=== PATIENT | female | born 1985 | race Caucasian/White ===

== ENCOUNTER → 2016-08-01 | Outpatient (CLI) | payer MEDICAID ==
[~2016-08-01] MED LIST: ACET-62 PO; IBUP200C62 PO
== END ==
LOC: LAB 16:31
PROVIDERS: ATTEND Nurse Practitioner Obstetrics & Gynecology
DX: Z36 Encounter for antenatal screening of mother (principal)
CPT/HCPCS: 36415; 84702

== ENCOUNTER 2017-03-19 15:25 | Inpatient (IN) ==
[2017-03-19] MEDS ORDERED: MAG-AL + SIM ORAL LIQUID 30ml PO PRN (15:40)
[2017-03-19] MEDS ORDERED: CALCIUM CARBONATE Chewable 500mg TABLET PO PRN (15:40)
[2017-03-19] MEDS ORDERED: ACETAMINOPHEN 500 MG TABLET PO PRN (15:40)
[2017-03-19] MEDS ORDERED: METHYLERGONOVINE 0.2 MG/ML INJECTION IM PRN (15:40)
[2017-03-19] MEDS ORDERED: CARBOPROST 250 MCG/ML INJECTION IM PRN (15:40)
[2017-03-19] MEDS ORDERED: LIDOCAINE 1% (10mg/ml) 2mL INJ PF SDV ID PRN (15:40)
[2017-03-19] MEDS: LR 1,000 ML IV PRN ×2 (15:53→17:11)
--- OUTSIDE RECORDS SUMMARY | 2017-03-19 16:27 | External Medical Summary ---
:1985 Author Organization eClinicalWorks Care Team Providers Name Role Phone Giorgi Iqbal Provider Role Unavailable Allergies No Known Allergies Problems Problem Type Condition ICD-9 Code Onset Dates Condition Status Assessment Acute bronchitis 466.0 Active Medications Medication Code System Code Instructions Start Date End Date Status Dosage Ventolin HFA [facility][NOTE 3] 06028-902 108 (90 Base) October 25, 1 to 2 2-20 MCG/ACT 2014 puffs as Inhalation every needed 6 hours as needed for cough/congestion Tylenol [facility][NOTE 3] 05511-313 325 MG Orally 1 tablet 6-60 every 6 hrs as needed Procedures Procedure Coding System Code Date URINALYSIS, IN HOUSE CPT-4 02594 November 23, 2014 Results No Known Results Summary Purpose eClinicalWorks Submission
--- OUTSIDE RECORDS SUMMARY | 2017-03-19 16:27 | External Medical Summary | Continuity of Care Document ---
:1985 Author Organization [facility] Address [address] [place], [place] [id number] Phone Care Team Providers Name Role Phone [facility] Unavailable Unavailable Allergies, Adverse Reactions, Alerts Substance Reaction Severity Status No Known Drug Allergies Unknown Active Medications Medication Instructions Dosage Effective Dates Status Comments (start - stop) Fioricet 50 mg-300 take 1 - 2 capsule Not Available - Active mg-40 mg capsule by oral route every 4 hours as needed not to exceed 6 capsules per 24hrs 28 mg take 1 tablet by Not Available - Active iron-800 mcg tablet oral route every day CLOBETASOL apply by topical - Active PROPIONATE (unknown route 2 times every strength) day a thin layer to the affected area(s) TRIAMCINOLONE apply by topical - Active ACETONIDE (unknown route 2 times every strength) day a thin layer to the affected area(s) Problems Condition Effective Dates (start - stop) Clinical Status Supervision of other high risk - pregnancies, third trimester 35 weeks gestation of - Candidiasis of vulva and vagina Candidiasis of vulva and vagina 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) w/o abn findings Pap Smear Screening, Cervix - Secondary amenorrhea Supervision of other high risk - pregnancies, second trimester 18 weeks gestation of - Supervision of other high risk - pregnancies, first trimester Oth related conditions, - first trimester Pap Smear Screening, Cervix - 10 weeks gestation of - Supervision of other high risk - pregnancies, second trimester 20 weeks gestation of - Supervision of other high risk - pregnancies, second trimester Maternal care for excess growth, - second tri, unsp 20 weeks gestation of - Supervision of other high risk - pregnancies, second trimester 25 weeks gestation of - Supervision of other high risk - pregnancies, second trimester 14 weeks gestation of - Supervision of other high risk - pregnancies, third trimester Oth related conditions, - third trimester 31 weeks gestation of - Supervision of other high risk - pregnancies, third trimester 29 weeks gestation of - Supervision of other high risk - pregnancies, third trimester 33 weeks gestation of - Maternal care for excess growth, - third trimester, unsp Low lying placenta NOS or w/out - hemorrhage, third trimester 33 weeks gestation of - Decreased movements, third - trimester, unsp Encounter For Screening For - Streptococcus B 37 weeks gestation of - Encounter for removal of intrauterine - contraceptive device Encounter for removal of intrauterine contraceptive device state, incidental Encounter for screening of mother Procedures Procedure Date Immuniz admnin, 1 vac, sngl/combo 19 Yrs + TDAP VACCINE >7 IM Immuniz admn, ea add vacsngl/combo Flu Vaccine - Quadrivalent OB Visit No Charge Results Test Name Date and Time Measure Units Reference Range Abnormal Flag Comments Unknown Advance Directives Directive Yes / No Effective Date File Name Unknown Encounters Encounter Practice Location Reason(s) Diagnoses Date Provider Care Team Description For Visit [facility] Decreased Oct-2 Jose M In Womens movements, third 5-[address] [place] [address] [place], trimester, 7 Medical PO Box unspEncounter For Center 1522, DrPalomo, Screening For 120, [place], Streptococcus B37 Esa, [id number], weeks gestation [place], [place] of [id number] tel: , [place]. tel: [phone] Thad See Supervision of Oct-1 Jose M Referring In Womens other high risk 0-201 Mona. 700 Provider: Health [place], pregnancies, 7 Medical [place] PO Box third [email or web address] Center Jose M R, 1522, weeks gestation Palomo Clemens, of 120, Medical [place], See, [place] , [place], [facility] 120, [place] [id number] Esa, tel: , [place]. [place], tel:[phone]. [id number] tel:[phone] Thad See Supervision of Sep-2 Jose M In Womens other high risk 7-201 [place]. 700 Health [place], pregnancies, 7 Medical PO Box third [email or web address] Center 1522, weeks gestation Palomo Clemens, of 120, [place], See, [id number], [place], [place] [id number] tel: , [place]. tel: [phone] Thad See Maternal care for Sep-2 Jose M In Womens Ultrasound excess 7-201 Mon[place]. 700 Health [place], growth, third 7 Medical PO Box trimester, Center 1522, unspLow lying Palomo Clemens, placenta NOS or 120, [place], w/out hemorrhage, Esa, , third [email or web address] [place], [place] weeks gestation [id number] tel: of , [place]. tel: [phone] Thad See Supervision of Sep-1 Jose M In Womens other high risk 2-201 [place]. 700 Health [place], pregnancies, 7 Medical PO Box third Center 1522, trimesterOth Palomo Clemens, related 120, [place], conditions, third Esa, [id number], [email or web address] weeks [place], [place] gestation of [id number] tel: , [place]. tel: [phone] Thad See Supervision of Sep-0 Jose M In Womens other high risk 1-201 [place]. 700 Health [place], pregnancies, 7 Medical PO Box third [email or web address] Center 1522, weeks gestation Palomo Clemens, of 120, [place], See, [id number], [place], [place] [id number] tel: , . tel: [phone] Thad See Supervision of Aug-0 Jose M In Womens other high risk 3-201 [place]. 700 Health [place], pregnancies, 7 Medical PO Box second Center 1522, [email or web address] weeks Palomo Clemens, gestation of 120, [place], [place], [id number], [place], [place] [id number] tel: , . tel: [phone] Thad See Supervision of Dami-2 Jose M In Womens other high risk 8-201 [place]. 700 Health [place], pregnancies, 7 Medical PO Box second Center 1522, weeks Palomo Clemens, gestation of 120, [place], See, [id number], [place], [place] [id number] tel: , . tel: [phone] Thad See Supervision of Dami-2 Jose M In Womens Ultrasound other high risk 8-201 [place]. 700 Health [place], pregnancies, 7 Medical PO Box second Center 1522, trimesterMaternal Palomo Clemens, care for excess 120, [place], growth, See, , second tri, [place], [place] unsp20 weeks tel: gestation of , [place]. tel: [phone] Thad See Supervision of Dami-1 Jose M In Womens other high risk 5-201 [place]. 700 Health [place], pregnancies, 7 Medical PO Box second Center 1522, [email or web address] weeks Palomo Clemens, gestation of 120, [place], See, [id number], [place], [place] [id number] tel: , . tel: [phone] Thad See Supervision of May-1 Jose M In Womens other high risk 8-201 [place]. 700 Health [place], pregnancies, 7 Medical PO Box second Center 1522, weeks Palomo Clemens, gestation of 120, [place], See, [id number], [place], [place] [id number] tel: , . tel: [phone] Thad See Supervision of Apr-2 Jose M In Womens other high risk 0-201 Mon[place]. 700 Health [place], pregnancies, 7 Medical PO Box first Center 1522, trimesterOth , Palomo Rogers, related 120, [place], conditions, first See, , trimesterPap [place], [place] Smear Screening, tel: Pitknl81 weeks , [place]. gestation of tel: [phone] Thad See Secondary Apr-0 Jose M In Womens amenorrhea 6-201 [place]. 700 Health [place], 7 Medical PO Box Center 1522, , Palomo Rogers, 120, [place], See, [id number], [place], [place] tel: , [place]. tel: [phone] Thad See state, Mar-2 Jose M In Womens incidental 2-201 Mon[place]. 700 Health [place], 7 Medical PO Box Center 1522, Palomo Clemens, 120, [place], See, , [place], [place] tel: , [place]. tel: [phone] Thad See Encounter for Mar-1 Joe In Womens 5-201 [place]. Health [place], screening of 7 700 PO Box mother Medical 1522, [place] Dr Sue, [facility] ADELAIDA, 120, , See, [place], tel:901 , [place]. tel: [phone] Thad See Candidiasis of Chap[place]-2 [place] In Womens vulva and 6-201 [place]. Health [place], vaginaCandidiasis 7 700 PO Box of vulva and Medical 1522, vaginaEncntr for [place], biology tutor exam Palomo Clemens, (general) 120, [id number], (routine) w/o abn See, [place] findingsPap Smear [place], tel: Screening, Cervix , [place]. tel: [phone] Thad See Encounter for Chapito-2 Jose M In Womens removal of 2-201 [place]. 700 Health [place], intrauterine 6 Medical PO Box contraceptive [place] 1522, deviceEncounter , Palomo Rogers, for removal of 120, [place], intrauterine [place], , contraceptive [place], [place] device tel: , [place]. 145711 tel: [phone] Thad See Feb-2 Jose M In Women 8-[address], [address] [place] [address] 1522, , Palomo Rogers, 120, [place], See, [id number], [place], [place] [id number] tel: , [place]. 735546 tel: [phone] Family History Family Member Diagnosis Age At Onset Paternal Grandmother Diabetes mellitus Paternal Grandfather Lung Disease Maternal Grandfather Diabetes mellitus Paternal Grandfather Diabetes mellitus Maternal Grandmother Diabetes mellitus Maternal Grandmother Ovarian Cancer Maternal Grandmother Skin Cancer Immunizations Vaccine Date Status Comments Tdap completed Source: New Immunization Record Influenza, injectable, completed Source: New Immunization Record quadrivalent, preservative free, 3 yrs or older Payers Payer name Insurance type Covered alliance party ID Authorization(s) [employer] [place] Medicaid MC [id number] [employer] [place] MC [id number] [employer] [place] Medicaid MC [id number] Social History Type Description Quantity Date Captured Alcohol Use Details No Caffeine Use Details Unknown Tobacco Use Status Smoking Status Former smoker Vital Signs Date / Height Weight BMI Pulse Blood Temperature Respiratory Body Head BMI Time: Rate Pressure Rate Surface Circumference percentile Area 238.80 43.6 130/72 -2017 lbs 7 mm[Hg] 2:57 kg/m PM eter (2) Chief Complaint And Reason For Visit Unknown Chief Complaint And Reason For Visit Reason For Referral Reason For Referral Unknown Plan Of Care Date Type Action Status Goal Lifestyle education regarding completed diet Goal Lifestyle education regarding completed diet Appointment Jackie Alejandra BOOKED Future Order: Lab Order Pap Smear With HPV Reflex If Ordered ASCUS ([id number]) Future Order: Radiology Order Complete OB Ultrasound > 14 Ordered Weeks ([id number]) Future Order: Radiology Order Ultrasound OB Follow-up ([id number]) Ordered Date Type Problem Goal Intervention Status Start Date Unknown. History Of Present Illness Encounter Date Complaint History Of Present Illness This patient has no known history of present illness Functional Status Encounter Date Functional Assessment Cognitive Assessment Unknown Medications Administered Medication Instructions Dosage Effective Dates (start - stop) Status Comments Drug Treatment Unknown Instructions Date Instruction Additional Information HIV and other routine tests risk factors identified by history anticipated course of care nutrition and weight gain counseling, special diet toxoplasmosis precautions (cats / raw meat) sexual activity exercise indications for ultrasound influenza vaccine environmental / work hazards travel use of any medications (including supplements, vitamins, herbs, OTC drugs) domestic violence seat belt use childbirth classes / hospital facilities hospital registration genetic testing Zika virus assessment & precautions Giving encouragement to exercise Related to Body mass index 38.0-38.9 Lifestyle education regarding diet Related to Body mass index 38.0-38.9 Giving encouragement to exercise Related to Body mass index 38.0-38.9 Lifestyle education regarding diet Related to Body mass index 38.0-38.9
--- OUTSIDE RECORDS SUMMARY | 2017-03-19 16:27 | External Medical Summary | Continuity of Care Document ---
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 Pap [...] second trimester 14 weeks gestation of - Encounter for removal of intrauterine - contraceptive device Encounter for removal of intrauterine contraceptive device state, incidental Encounter for screening of mother Procedures Procedure Date OB Visit No Charge Results Test Name Date and Time Measure Units Reference Range Abnormal Flag Comments Unknown Advance Directives Directive Yes / No Effective Date File Name Unknown Encounters Encounter Practice Location Reason(s) Diagnoses Date Provider Care Description For Visit Team Members Thad See Supervision of Jose M In Womens other high risk 3-201 [place]. 700 Health [place], pregnancies, 7 Medical PO Box second [email or web address] Center 1522, weeks gestation of Palomo Clemens, 120, [place], [place], [id number], [place], [place] [id number] tel:+ , [place]. tel: [phone] Thad See Supervision of Dami-2 Jose M In Womens other high risk 8-201 [place]. 700 Health [place], pregnancies, 7 Medical PO Box second [email or web address] Center 1522, weeks gestation of Palomo Clemens, 120, [place], [place], [id number], [place], [place] [id number] tel:+ , [place]. tel:[phone] Thad See Supervision of Dami-2 Jose M In Womens Ultrasound other high risk 8-201 [place]. 700 Health [place], pregnancies, 7 Medical PO Box second Center 1522, trimesterMaternal Palomo Clemens, care for excess 120, [place], growth, [place]sa, [id number], second tri, unsp20 [place], [place] weeks gestation of [id number] tel:+ , [place]. tel: [phone] Thad See Supervision of Dami-1 Jose M In Womens other high risk 5-201 [place]. 700 Health [place], pregnancies, 7 Medical PO Box second [email or web address] Center 1522, weeks gestation of Palomo Clemens, 120, [place], [place], [id number], [place], [place] [id number] tel: , [place]. tel: [phone] Thad See Supervision of May-1 Jose M In Womens other high risk 8-201 [place]. 700 Health [place], pregnancies, 7 Medical PO Box second [email or web address] Center 1522, weeks gestation of Palomo Clemens, 120, [place], See, [id number], [place], [place] [id number] tel: , [place]. tel: [phone] Thad See Supervision of Apr-2 Jose M In Womens other high risk 0-201 [place]. 700 Health [place], pregnancies, first 7 Medical PO Box trimesterOth Center 1522, related Palomo Clemens, conditions, first 120, [place], trimesterPap Smear See, , Screening, [place], [place] Pyucgn56 weeks tel: gestation of , [place]. tel: [phone] Thad See Secondary Apr-0 Jose M In Womens amenorrhea 6-201 [place]. 700 Health [place], 7 Medical PO Box Center 1522, Palomo Clemens, 120, [place], See, [id number], [place], [place] [id number] tel: , [place]. tel: [phone] Thad See state, Mar-2 Joes M In Womens incidental 2-201 [place]. 700 Health [place], 7 Medical PO Box Center 1522, Palomo Clemens, 120, [place], Esa, [id number], [place], [place] [id number] tel: , [place]. tel: [phone] Thad See Encounter for Mar-1 Joe In Womens 5-201 [place]. Health [place], screening of 7 700 PO Box mother Medical 1522, Center Sue, , [facility], 120, [id number], See, [place], tel:[phone] , [place]. tel: [phone] Thad See Candidiasis of [place]-2 [place] In Womens vulva and 6-201 [place]. Health [place], vaginaCandidiasis 7 700 PO Box of vulva and Medical 1522, vaginaEncntr for Center Sue, sourcing coordinator exam (general) Palomo Clemens, (routine) w/o abn 120, [id number], findingsPap Smear See, [place] Screening, Cervix [place], tel:[phone] , [place]. tel: [phone] Thad See Encounter for Jose M In Womens removal of 2-201 [place]. 700 [facility] [place], intrauterine 6 Medical PO Box contraceptive Center 1522, deviceEncounter Palomo Clemens, for removal of 120, [place], intrauterine See, [id number], contraceptive [place], [place] device [id number] tel: , [place]. tel: [phone] Thad See Fe- Jose M In Womens 8-200 [place]. 700 Health [place], 8 Medical PO Box Center 1522, Palomo Clemens, 120, [place], See, [id number], [place], [place] [id number] tel: , [place]. tel: [phone] Family History Family Member Diagnosis Age At Onset Paternal Grandmother Diabetes mellitus Paternal Grandfather Lung Disease Maternal Grandfather Diabetes mellitus Paternal Grandfather Diabetes mellitus Maternal Grandmother Diabetes mellitus Maternal Grandmother Ovarian Cancer Maternal Grandmother Skin Cancer Immunizations Vaccine Date Status Comments Unknown Payers Payer name Insurance type Covered constitution party ID Authorization(s) [employer] [place] - Medicaid MC [id number] Social History Type Description Quantity Date Captured Alcohol Use Details No Caffeine Use Details Unknown Tobacco Use Status Smoking Status Former smoker Vital Signs Date / Height Weight BMI Pulse Blood Temperature Respiratory Body Head BMI Time: Rate Pressure Rate Surface Circumference percentile Area Unknown Chief Complaint And Reason For Visit Unknown [...] Complete OB Ultrasound > 14 Ordered Weeks (37642) Date Type Problem Goal Intervention Status Start [...]
--- OUTSIDE RECORDS SUMMARY | 2017-03-19 16:27 | External Medical Summary ---
:1985 Author Organization eClinicalWorks Care Team Providers Name Role Phone Olesya Perrin Provider Role Unavailable Allergies, Adverse Reactions, Alerts Substance Reaction Event Type N.K.D.A. Info Not Available Non Drug Allergy Problems Problem Type Condition ICD-9 Code Onset Dates Condition Status Assessment Overweight 278.02 Active Assessment Acute maxillary sinusitis 461.0 Active Problem Overweight 278.02 Active Medications Medication Code System Code Instructions Start Date End [place] [address] 150 MG Orally x1, December 06, December 08, 1 tablet 0-79 may repeat in a 2014 [address] [place] [address] 875-125 MG Orally December 06, December 16, 1 tablet 6-12 Twice a day 2014 2014 [place] [address] 108 (90 Base) October 25, 1 to 2 2-20 MCG/ACT 2014 puffs as Inhalation every needed 6 hours as needed for cough/congestion Tylenol NDC 41346-911 325 MG Orally 1 tablet 6-60 every 6 hrs as needed Procedures Procedure Coding System Code Date TSH CPT-4 80782 December 06, 2014 OFFICE VISIT, EST-LOW COMPLEXITY (15 MIN.) CPT-4 67661 December 06, 2014 COMPLETE CBC W/AUTO DIFF WBC CPT-4 04848 December 06, 2014 Vital Signs Date/Time: December 06, 2014 Height 61 in Weight 213.8 lbs Temperature 98.5 F Blood Pressure Diastolic 83 mm Hg Blood Pressure Systolic 123 mm Hg Cardiac Monitoring Heart Rate 102 /min BMI 40.39 Index Respiratory Rate 14 /min Results No Known Results Summary Purpose eClinicalWorks Submission
--- OUTSIDE RECORDS SUMMARY | 2017-03-19 16:30 | External Medical Summary ---
:1984 Author Organization eClinicalWorks Care Team Providers Name Role Phone Giorgi Iqbal Provider Role Unavailable Allergies, Adverse Reactions, Alerts Substance Reaction Event Type N.K.D.A. Info Not Available Non Drug Allergy Problems Problem Type Condition ICD-9 Code Onset Dates Condition Status Assessment Pain in joint, ankle and foot 719.47 Active Assessment Closed fracture of unspecified 825.20 Active bone(s) of foot (except toes) Problem Overweight 278.02 Active Assessment Other fall E888.8 Active Medications Medication Code System Code Instructions Start Date End Date Status Dosage [place] [facility] [address]-018 5-325 MG Orally 1 tablet 3-01 every 6 hrs as needed Ventolin HFA [facility] 4[address]-326 108 (90 Base) October 25, 1 to 2 2-20 MCG/ACT 2015 puffs as Inhalation every needed 6 hours as needed for cough/congestion Procedures Procedure Coding System Code Date OFFICE VISIT, EST-LOW COMPLEXITY (15 MIN.) CPT-4 51599 Jan 26, 2015 Vital Signs Date/Time: Jan 26, 2015 Cardiac Monitoring Heart Rate 97 /min Height 61 in Temperature 98.6 F Oximetry 98 % Respiratory Rate 16 /min Blood Pressure Diastolic 80 mm Hg Blood Pressure Systolic 124 mm Hg Results No Known Results Summary Purpose [email or web address] Submission
--- OUTSIDE RECORDS SUMMARY | 2017-03-19 16:31 | External Medical Summary | Continuity of Care Document ---
:1985 Author Organization [facility] [facility] Address [address] [place], [place] [id number] Phone Care Team Providers Name Role Phone [facility] Unavailable Unavailable Allergies, Adverse Reactions, Alerts Substance [...] third trimester 33 weeks gestation of - Candidiasis of vulva and vagina Candidiasis of vulva and vagina Encntr for obgyn specialist exam (general) (routine) w/o abn findings Pap [...] third trimester 35 weeks gestation of - Supervision of other high risk - pregnancies, third trimester 29 weeks gestation of - Maternal care for excess growth, - third trimester, unsp Low lying placenta NOS or w/out - hemorrhage, third trimester 33 weeks gestation of - Encounter for removal [...] Provider Care Team Description For Visit Members Thad See Supervision of Feb- Jose M Referring In Womens other high risk 0-201 [place]. Porsche Provider: Health [place], pregnancies, 7 Medical [place] PO Box third [email or web address] Center Jose M , 1522, weeks gestation Palomo Clemens, of 120, Medical [facility] [id number], [place], [place] [address], [id number] [place], tel: , . [place], [address] tel: [phone]. [id number] tel:[phone] Thad See Supervision of Jan-2 Jose M In Womens other high risk 7-201 [place]. 700 Health [place], pregnancies, 7 Medical PO Box third [email or web address] Center 1522, weeks gestation Palomo Clemens, of 120, [place], See, [id number], [place], [place] [id number] tel:+ , [place]. tel:[phone] Thad See Maternal care for Sep-2 Jose M In Womens Ultrasound excess 7-201 [place]. 700 Health [place], growth, third 7 Medical PO Box trimester, Center 1522, unspLow lying [place] Clemens, placenta NOS or 120, [place], w/out hemorrhage, See, , third [email or web address] [place], [place] weeks gestation [id number] tel:+ of , [place]. tel:[phone] Thad See Supervision of Sep-1 Jose M In Womens other high risk 2-201 [place]. 700 Health [place], pregnancies, 7 Medical PO Box third Center 1522, trimesterOth Pal[place] Clemens, related 120, [place], conditions, third See, [id number], [email or web address] weeks [place], [place] gestation of [id number] tel:+ , [place]. tel: [phone] Thad See Supervision of Sep-0 Jose M In Womens other high risk 1-201 [place]. 700 Health [place], pregnancies, 7 Medical PO Box third [email or web address] Center 1522, weeks gestation Pal[place] Clemens, of 120, [place], See, [id number], [place], [place] [id number] tel:+ , [place]. tel:[phone] Thad See Supervision of Aug-0 Jose M In Womens other high risk 3-201 [place]. 700 Health [place], pregnancies, 7 Medical PO Box second Center 1522, [email or web address] weeks Pal[place] Clemens, gestation of 120, [place], See, [id number], [place], [place] [id number] tel: , [place]. tel:[phone] Thad See Supervision of Dami-2 Jose M In Womens other high risk 8-201 [place]. 700 Health [place], pregnancies, 7 Medical PO Box second Center 1522, [email or web address] weeks Palomo Clemens, gestation of 120, [place], See, [id number], [place], [place] [id number] tel: , [place]. tel:[phone] Thad See Supervision of Dami-2 Jose M In Womens Ultrasound other high risk 8-201 [place]. 700 Health [place], pregnancies, 7 Medical PO Box second Center 1522, trimesterMaternal Palomo Clemens, care for excess 120, [place], growth, See, [id number], second tri, [place], [place] unsp20 weeks [id number] tel: gestation of , [place]. tel: [phone] Thad See Supervision of Dami-1 Jose M In Womens other high risk 5-201 [place]. 700 Health [place], pregnancies, 7 Medical PO Box second Center 1522, [email or web address] weeks Pal[place] Clemens, gestation of 120, [place], See, [id number], [place], [place] [id number] tel: , [place]. tel: [phone] Thad See Supervision of May-1 Jose M In Womens other high risk 8-201 [place]. 700 Health [place], pregnancies, 7 Medical PO Box second Center 1522, [email or web address] weeks Palomo Clemens, gestation of 120, [place], See, [id number], [place], [place] [id number] tel: , [place]. tel: [phone] Thad See Supervision of Apr-2 Jose M In Womens other high risk 0-201 [place]. 700 Health [place], pregnancies, 7 Medical PO Box first Center 1522, trimesterOth [place] Clemens, related 120, [place], conditions, first See, , trimesterPap [place], [place] Smear Screening, tel: Vdnrit32 weeks , [place]. gestation of tel: [phone] Thad See Secondary Apr-0 Jose M In Womens amenorrhea 6-201 [place]. 700 Health [place], 7 Medical PO Box Center 1522, [place]omo Clemens, 120, [place], [place], [id number], [place], [place] [id number] tel: , [place]. tel: [phone] Thad See state, Mar-2 Jose M In Womens incidental 2-201 [place]. 700 Health [place], 7 Medical PO Box Center 1522, Pal[place] Clemens, 120, [place], [place], [id number], [place], [place] [id number] tel:+ , [place]. tel: [phone] Thad See Encounter for Mar-1 Joe In Womens 5-201 [place]. Health [place], screening of 7 700 PO Box mother Medical 1522, [place] Sue, , Palomo SON, 120, [id number], See, [place], tel:[phone] , [place]. tel: [phone] Thad See Candidiasis of [place]-2 [place] In Womens vulva and 6-201 [place]. Health [place], vaginaCandidiasis 7 700 PO Box of vulva and Medical 1522, vaginaEncntr for [facility], obgyn specialist exam , Palomo SON, (general) 120, , (routine) w/o abn See, [place] findingsPap Smear [place], tel: Screening, Cervix , [place]. tel: [phone] Thad See Encounter for [place]-2 Jose M In Womens removal of 2-201 [place]. 700 Health [place], intrauterine 6 Medical PO Box contraceptive [place] 1522, deviceEncounter , Palomo Rogers, for removal of 120, [place], intrauterine [place], , contraceptive [place], [place] device [id number] tel:+ , [place]. tel: [phone] Thad See Feb-2 Jose M In Womens 8-200 [place]. 700 Health [place], 8 Medical PO Box [place] 1522, Palomo Clemens, 120, [place], [place], , [place], [place] [id number] tel:+ , [place]. tel: [phone] Family History Family Member Diagnosis Age At [...] older Payers Payer name Insurance type Covered green party ID Authorization(s) [employer] [place] Medicaid MC [id number] [place] Medicaid MC [id number] [place] - Medicaid MC [id number] Social History Type Description Quantity Date Captured Alcohol Use Details No Caffeine Use Details Unknown Tobacco Use Status Smoking Status Former smoker Vital Signs Date / Height Weight BMI Pulse Blood Temperature Respiratory Body Head BMI Time: Rate Pressure Rate Surface Circumference percentile Area 235.30 43.0 129/77 2017 lbs 3 mm[Hg] 2:41 kg/m PM eter (2) Chief Complaint And [...] Complete OB Ultrasound > 14 Ordered Weeks ([id number]) Future Order: Radiology Order Ultrasound OB Follow-up ([id number]) Ordered Date Type Problem Goal Intervention Status [...]
--- OUTSIDE RECORDS SUMMARY | 2017-03-19 16:31 | External Medical Summary ---
:1985 Author Organization eClinicalWorks Care Team Providers Name Role Phone Olesya Perrin Provider Role Unavailable Allergies, Adverse Reactions, Alerts Substance Reaction Event Type N.K.D.A. 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
--- OUTSIDE RECORDS SUMMARY | 2017-03-19 16:31 | External Medical Summary | Continuity of Care Document ---
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 findings Pap [...] second trimester 14 weeks gestation of - Maternal care for excess growth, - second tri, unsp Supervision of other high risk - pregnancies, second trimester 20 weeks gestation of - Supervision of other high risk - pregnancies, second trimester 25 weeks gestation of - Supervision of other high risk - pregnancies, third trimester Oth related conditions, - third trimester 31 weeks gestation of - Encounter for removal of intrauterine - contraceptive device Encounter for removal of intrauterine contraceptive device Encounter for screening of mother state, incidental Procedures Procedure Date OB Visit No Charge Results Test Name Date and Time Measure Units Reference Range Abnormal Flag Comments Panel Description: Glucose [Mass/volume] in Serum or Plasma --1 hour post 50 g glucose PO GLUCOSE, 181 mg/dL <140 H One hour value of > GESTATIONAL SCREEN 15:07:00 ky=896 mg/dL indicatesthe (50G)-140 CUTOFF need for a diagnostic 75 g dose 2-hour or100 g dose 3-hour oral glucose tolerance test;patient fasting is required.Test performed at [facility] [id number] [place] [id number]: MED VELÁSQUEZ DO,MPH Panel Description: HEMOGLOBIN + HEMATOCRIT HEMOGLOBIN 15:07:00 10.9 g/dL 11.7-15.5 L HEMATOCRIT 15:07:00 32.5 % 35.0-45.0 L REPORT COMMENT:FASTING :NOTest performed at [facility] [id number] [place] [id number]: MED VELÁSQUEZ DO,MPH Advance Directives Directive Yes / No Effective Date File Name Unknown Encounters Encounter Practice Location Reason(s) Diagnoses Date Provider Care Description For Visit Team Members Thad See Supervision of Jose M In Womens other high risk 2-[address], pregnancies, third 7 Medical [facility] 1522, related Palomo Clemens, conditions, third 120, [place], [email or web address] weeks See, [id number], gestation of [place], [place] [id number] tel:+ , [place]. tel: [phone] Thad See Supervision of Sep-0 Jose M In Womens other high risk 1-201 [place]. 700 Health [place], pregnancies, third 7 Medical PO Box [email or web address] weeks Center 1522, gestation of [place] Clemens, 120, [place], See, [id number], [place], [place] [id number] tel:+ , [place]. tel: [phone] Thad See Supervision of Aug-0 Jose M In Womens other high risk 3-201 [place]. 700 Health [place], pregnancies, 7 Medical PO Box second Center 1522, weeks gestation of Palomo Clemens, 120, [place], See, [id number], [place], [place] [id number] tel:+ , [place]. tel: [phone] Thad See Supervision of Dami-2 Jose M In Womens other high risk 8-201 [place]. 700 Health [place], pregnancies, 7 Medical PO Box second [email or web address] Center 1522, weeks gestation of Palomo Clemens, 120, [place], See, [id number], [place], [place] [id number] tel:+ , [place]. tel: [phone] Thad See Maternal care for Dami-2 Jose M In Womens Ultrasound excess 8-201 [place]. 700 Health [place], growth, second 7 Medical PO Box tri, Center 1522, unspSupervision of Palomo Clemens, other high risk 120, [place], pregnancies, See, [id number], second [email or web address] [place], [place] weeks gestation of [id number] tel:+ , [place]. tel: [phone] Thad See Supervision of Dami-1 Jose M In Womens other high risk 5-201 [place]. 700 Health [place], pregnancies, 7 Medical PO Box second [email or web address] Center 1522, weeks gestation of Paloom Clemens, 120, [place], See, [id number], [place], [place] [id number] tel:+ , [place]. tel: [phone] Thad See Supervision of May-1 Jose M In Womens other high risk 8-201 [place]. 700 Health [place], pregnancies, 7 Medical PO Box second [email or web address] Center 1522, weeks gestation of Palomo Clemens, 120, [place], See, [id number], [place], [place] [id number] tel:+ , [place]. tel: [phone] Thad See Supervision of Apr-2 Jose M In Womens other high risk 0-201 [place]. 700 Health [place], pregnancies, first 7 Medical PO Box trimesterOth Center 1522, related Palomo Clemens, conditions, first 120, [place], trimesterPap Smear See, , Screening, [place], [place] Fuxtwm66 weeks tel: gestation of , [place]. tel: [phone] Thad See Secondary Apr-0 Jose M In Womens amenorrhea 6-201 [place]. 700 Health [place], 7 Medical PO Box Center 1522, Palomo Clemens, 120, [place], See, [id number], [place], [place] [id number] tel:+ , [place]. tel: [phone] Thad See state, Mar-2 Jose M In Womens incidental 2-201 [place]. 700 Health [place], 7 Medical PO Box Center 1522, Palomo Clemens, 120, [place], See, [id number], [place], [place] [id number] tel:+ , [place]. tel: [phone] Thad See Encounter for Mar-1 Joe In Womens 5-201 [place]. Health [place], screening of 7 700 PO Box mother Medical 1522, [place] Sue, Palomo Clemens, 120, [id number], See, [place], tel:[phone] , [place]. tel: [phone] Thad See Candidiasis of [place]-2 [place] In Womens vulva and 6-201 [place]. 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 tel: [phone] Thad See Encounter for Jose M In Womens removal of 2-201 [place]. 700 Health [place], intrauterine 6 Medical PO Box contraceptive Center 1522, deviceEncounter , Palomo Rogers, for removal of 120, [place], intrauterine See, [id number], contraceptive [place], [place] device [id number] tel: , [place]. tel: [phone] Thad See Fe- Jose M In Womens 8-200 [place]. 700 Health [place], 8 Medical PO Box Center 1522, Palomo Clemens, 120, [place], See, [id number], [place], [place] [id number] tel: , [place]. tel: [phone] Family History Family Member Diagnosis Age At Onset Paternal Grandmother Diabetes mellitus Paternal Grandfather Lung Disease Maternal Grandfather Diabetes mellitus Paternal Grandfather Diabetes mellitus Maternal Grandmother Diabetes mellitus Maternal Grandmother Ovarian Cancer Maternal Grandmother Skin Cancer Immunizations Vaccine Date Status Comments Unknown Payers Payer name Insurance type Covered green party ID Authorization(s) [employer] Plan Of [place] - Medicaid MC [id number] Social History Type Description Quantity Date Captured Alcohol Use Details No Caffeine Use Details Unknown Tobacco Use Status Smoking Status Former smoker Vital Signs Date / Height Weight BMI Pulse Blood Temperature Respiratory Body Head BMI Time: Rate Pressure Rate Surface Circumference percentile Area 232.20 42.4 122/80 lbs 7 mm[Hg] 2:07 kg/m PM eter (2) Chief Complaint And Reason For Visit Unknown Chief Complaint And Reason For Visit Reason For Referral Reason For Referral Unknown Plan Of Care Date Type Action Status Goal Lifestyle education regarding completed diet Goal Lifestyle education regarding completed diet Appointment Jackie Alejandra BOOKED Appointment Jackie Alejandra BOOKED Future Order: Lab Order Pap Smear With HPV Reflex If Ordered ASCUS ([id number]) Future Order: Radiology Order Complete OB Ultrasound > 14 Ordered Weeks ([id number]) Date Type Problem Goal Intervention Status Start [...]
--- OUTSIDE RECORDS SUMMARY | 2017-03-19 16:31 | External Medical Summary | Continuity of Care Document ---
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 700 Provider: Health [place], pregnancies, 7 Medical [place] PO Box third [email or web address] Center Jose M R, 1522, weeks gestation Palomo Clemens, of 120, Medical [place] [id number], [place], [facility] 120, [id number] [place], tel: , . [place], [address] tel: [phone]. [id number] tel:[phone] Thad See Supervision of Sep-2 Jose M In Womens other high risk 7-201 [place]. 700 Health [place], pregnancies, 7 Medical PO Box third [email or web address] Center 1522, weeks gestation Palomo Clemens, of 120, [place], See, [id number], [place], [place] [id number] tel:+ , [place]. tel: [phone] Thad See Maternal care for Sep-2 Jose M In Womens Ultrasound excess 7-201 [place]. 700 Health [place], growth, third 7 Medical PO Box trimester, Center 1522, unspLow lying Palomo Clemens, placenta NOS or 120, [place], w/out hemorrhage, See, , third [email or web address] [place], [place] weeks gestation [id number] tel:+ of , [place]. tel: [phone] Thad See Supervision of Sep-1 Jose M In Womens other high risk 2-201 [place]. 700 Health [place], pregnancies, 7 Medical PO Box third Center 1522, trimesterOth Palomo Clemens, related 120, [place], conditions, third See, [id number], [email or web address] weeks [place], [place] gestation of [id number] tel:+ , [place]. tel:[phone] Thad See Supervision of Sep-0 Jose M In Womens other high risk 1-201 [place]. 700 Health [place], pregnancies, 7 Medical PO Box third [email or web address] Center 1522, weeks gestation Palomo Clemens, of 120, [place], See, [id number], [place], [place] 0358[address] tel:+ , [place]. tel: [phone] Thad See Supervision of Aug-0 Jose M In Womens other high risk 3-201 [place]. 700 Health [place], pregnancies, 7 Medical PO Box second Center 1522, [email or web address] weeks Palomo Clemens, gestation of 120, [place], See, [id number], [place], [place] [id number] tel: , [place]. tel: [phone] Thad See Supervision of Dami-2 Jose M In Womens other high risk 8-201 [place]. 700 Health [place], pregnancies, 7 Medical PO Box second Center 1522, weeks Palomo Clemens, gestation of 120, [place], See, [id number], [place], [place] [id number] tel:+ , [place]. tel: [phone] Thad See Supervision of Dami-2 Jose M In Womens Ultrasound other high risk 8-201 [place]. 700 Health [place], pregnancies, 7 Medical PO Box second Center 1522, trimesterMaternal Palomo Clemens, care for excess 120, [place], growth, See, [id number], second tri, [place], [place] unsp20 weeks [id number] tel: gestation of , [place]. tel: [phone] Thad See Supervision of Dami-1 Jose M In Womens other high risk 5-201 [place]. 700 Health [place], pregnancies, 7 Medical PO Box second Center 1522, [email or web address] weeks Palomo Clemens, gestation of 120, [place], See, [id number], [place], [place] [id number] tel: , . tel: [phone] Thad See Supervision of May-1 Jose M In Womens other high risk 8-201 [place]. 700 Health [place], pregnancies, 7 Medical PO Box second Center 1522, [email or web address] weeks Palomo Clemens, gestation of 120, [place], See, [id number], [place], [place] [id number] tel: , . tel: [phone] Thad See Supervision of Apr-2 Jose M In Womens other high risk 0-201 [place]. 700 Health [place], pregnancies, 7 Medical PO Box first Center 1522, trimesterOth Palomo Clemens, related 120, [place], conditions, first See, [id number], trimesterPap [place], [place] Smear Screening, tel: [id number] weeks , [place]. gestation of tel: [phone] Thad See Secondary Apr-0 Jose M In Womens amenorrhea 6-201 [place]. 700 Health [place], 7 Medical PO Box Center 1522, Palomo Clemens, 120, [place], See, [id number], [place], [place] [id number] tel: , [place]. tel: [phone] Thad See state, Mar-2 Jose M In Womens incidental 2-201 [place]. 700 Health [place], 7 Medical PO Box Center 1522, Palomo Clemens, 120, [place], [place], [id number], [place], [place] [id number] tel:+ , [place]. tel: [phone] Thad See Encounter for Mar-1 Joe In Womens 5-201 [place]. [facility] [place], screening of 7 700 PO Box mother Medical 1522, [place] Sue, , Palomo SON, 120, [id number], See, [place], tel:[phone] , [place]. tel: [phone] Thad See Candidiasis of [place]-2 [place] In Womens vulva and 6-201 [place]. [facility] [place], vaginaCandidiasis 7 700 PO Box of vulva and Medical 1522, vaginaEncntr for [facility], microfilm machine operator exam , Pal[place] SON, (general) 120, , (routine) w/o abn See, [place] findingsPap Smear [place], tel: Screening, Cervix , [place]. tel: [phone] Thad See Encounter for [place]-2 Jose M In Womens removal of 2-201 [place]. 700 Health [place], intrauterine 6 Medical PO Box contraceptive [place] 1522, deviceEncounter , [place] Rogers, for removal of 120, [place], intrauterine See, , contraceptive [place], [place] device tel:+ , [place]. tel: [phone] Thad See Feb-2 Jose M In Womens 8-200 [place]. 700 Health [place], 8 Medical PO Box [place] 1522, Palomo Clemens, 120, [place], See, [id number], [place], [place] [id number] tel:+ , [place]. tel: [phone] Family History Family Member Diagnosis Age At [...] older Payers Payer name Insurance type Covered democrat ID Authorization(s) [employer] [place] - Medicaid MC [id number] [employer] [place] - Medicaid MC [id number] [employer] [place] - Medicaid MC [id number] Social History Type Description Quantity Date Captured Unknown Vital Signs Date / Height Weight BMI [...] diet Appointment Jackie Alejandra BOOKED Future Order: Radiology Order Ultrasound OB Follow-up ([id number]) Ordered Future Order: Lab Order Pap Smear With HPV Reflex If Ordered ASCUS ([id number]) Future Order: Radiology Order Complete OB Ultrasound > 14 Ordered Weeks ([id number]) Date Type Problem Goal Intervention Status Start [...]
--- OUTSIDE RECORDS SUMMARY | 2017-03-19 16:31 | External Medical Summary ---
:1984 Author Organization eClinicalWorks Care Team Providers Name Role Phone Riley Franco Provider Role Unavailable Allergies, Adverse Reactions, Alerts Substance Reaction Event Type norco itching Non Drug Allergy Problems Problem Type Condition Code Onset Dates Condition Status Problem Attention-deficit hyperactivity F90.2 Active disorder, combined type Assessment Encounter for dental examination and Z01.20 Active cleaning without abnormal findings Problem Overweight 278.02 Active Medications No Known Medications Procedures Procedure Coding System Code Date COMP ORAL EVALUATION - NEW/EST PT CPT-4 D0150 September 19, 2015 INTRAORL - CMPL SERIES CODE 36967 CPT-4 D0210 September 19, 2015 Results No Known Results Summary Purpose [employer] Submission
--- OUTSIDE RECORDS SUMMARY | 2017-03-19 16:31 | External Medical Summary | Continuity of Care Document ---
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) w/o abn findings Pap Smear Screening, Cervix - Secondary amenorrhea Supervision of other high risk - pregnancies, second trimester 18 weeks gestation of - Supervision of other high risk - pregnancies, first trimester Pap Smear Screening, Cervix - Oth related conditions, - first trimester 10 weeks gestation of - Supervision of other high risk - pregnancies, second trimester 20 weeks gestation of - Supervision of other high risk - pregnancies, second trimester Maternal care for excess growth, - second tri, unsp 20 weeks gestation of - Encounter for removal of intrauterine - contraceptive device Encounter for removal of intrauterine contraceptive device Encounter for screening of mother state, incidental Supervision of other high risk - pregnancies, second trimester 14 weeks gestation of - Supervision of other high risk - pregnancies, second trimester 25 weeks gestation of - Supervision of other high risk - pregnancies, third trimester 29 weeks gestation of - Oth related conditions, - third trimester Supervision of other high risk - pregnancies, third trimester 31 weeks gestation of - Procedures Procedure Date Unknown Results Test Name Date and Time Measure Units Reference Range Abnormal Flag Comments Panel Description: GLUCOSE TOLERANCE TEST, GESTATIONAL,4SPEC(100G) GLUCOSE, FASTING 08:24:00 90 mg/dL 65-94 N GLUCOSE, 1 HOUR 08:24:00 174 mg/dL <180 N GLUCOSE, 2 HOUR 08:24:00 138 mg/dL <155 N GLUCOSE, 3 HOUR 08:24:00 119 mg/dL <140 N 08:24:00 See Below Pendleton/Bgstan Criteria: Two or more values greater than the above reference intervals are suggestive of gestational diabetes. REPORT COMMENT:FASTING:YESTe st performed at [facility] [id number] [place] [id number]: MED VELÁSQUEZ DO,MPH Advance Directives Directive Yes / No Effective Date File Name Unknown Encounters Encounter Practice Location Reason(s) Diagnoses Date Provider Care Description For Visit Team Members [facility] related conditions, 2-[address] [place] [place] [address], third 7 Medical [facility] 1522, n of other high [place]ens, risk pregnancies, 120, [place], third [email or web address] Esa, [id number], weeks gestation of [place], [place] [id number] tel:[phone] , [place]. tel:[phone] Thad See Sep-0 Jose M In Womens 4-201 [place]. [facility] [place], 7 Medical [facility] [address] [facility] [address], [place], 120, [place], See, [id number], [place] [id number] tel:+ , [place]. tel: [phone] Thad See Supervision of Sep-0 Jose M In Womens other high risk 1-201 [place]. [facility] [place], pregnancies, third 7 Medical PO Box [email or web address] weeks Center 1522, gestation of [place], 120, [place], See, [id number], [place], [place] [id number] tel:+ , [place]. tel: [phone] Thad See Supervision of Aug-0 Jose M In Womens other high risk 3-201 [place]. [facility] [place], pregnancies, second 7 Medical PO Box [email or web address] weeks Center 1522, gestation of [place], 120, [place], Esa, [id number], [place], [place] [id number] tel:+ , [place]. tel: [phone] Thad See Supervision of Dami-2 Jose M In Womens other high risk 8-201 [place]. [facility] [place], pregnancies, second 7 Medical PO Box [email or web address] weeks Center 1522, gestation of [place], 120, [place], Esa, [id number], [place] [id number] tel:+ , [place]. tel: [phone] Thad See Supervision of Dami-2 Jose [facility] Ultrasound other high risk 8-201 [place]. [facility] [place], pregnancies, second 7 Medical PO Box trimesterMaternal Center 1522, care for excess [place] Clemens, growth, 120, [place], second tri, [email or web address] See, [id number], weeks gestation of [place], [place] [id number] tel:+ , [place]. tel: [phone] Thad See Supervision of Dami-1 Jose M In Womens other high risk 5-201 [place]. [facility] [place], pregnancies, second 7 Medical PO Box [email or web address] weeks Center 1522, gestation of [place], 120, [place], Esa, [id number], [place], [place] [id number] tel: , [place]. tel: [phone] Thad See Supervision of May-1 Jose M In Womens other high risk 8-201 [place]. [facility] [place], pregnancies, second 7 Medical PO Box [email or web address] weeks Center 1522, gestation of [place], 120, [place], See, [id number], [place] [id number] tel: , [place]. tel: [phone] Thad See Supervision of Apr-2 Jose M In Womens other high risk 0-201 [place]. [facility] [place], pregnancies, first 7 Medical PO Box trimesterPap Smear Center 1522, Screening, [place] Clemens, CervixOth 120, [place], related conditions, See, , first [email or web address] [place], [place] weeks gestation of [id number] tel: , [place]. tel: [phone] Thad See Secondary Apr-0 Jose [facility] amenorrhea 6-201 [place]. [facility] [place], 7 Medical PO Box Center 1522, [place], 120, [place], See, [id number], [place], [place] [id number] tel: , [place]. tel: [phone] Thad See state, Mar-2 [facility] incidental 2-201 [place]. [facility] [place], 7 Medical PO Box Center 1522, [place], 120, [place], See, , [place], [place] [id number] tel:+ , [place]. tel: [phone] Thad See Encounter for Mar-1 Joe In Womens screening 5-201 [place]. [facility] [place], of mother 7 700 PO Box Medical 1522, [place], , [facility], 120, [id number], See, [place], tel:[phone] , [place]. tel: [phone] Thad See Candidiasis of [place]-2 [place] [facility] [place] vulva and 6-201 [place]. 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 tel: [phone] Thad See Encounter for Jose M In Wom[facility] removal of 2-201 [place]. [facility] [place], intrauterine 6 Medical PO Box contraceptive Center 1522, deviceEncounter for [place], removal of 120, [place], intrauterine See, [id number], contraceptive [place], [place] device [id number] tel: , [place]. tel: [phone] Thad See Fe- Jose M In Womens 8-200 [place]. [facility] [place], 8 Medical PO Box Center 1522, [place], 120, [place], See, [id number], [place], [place] [id number] tel: , [place]. tel: [phone] Family History Family Member Diagnosis Age At Onset Paternal Grandmother Diabetes mellitus Paternal Grandfather Lung Disease Maternal Grandfather Diabetes mellitus Paternal Grandfather Diabetes mellitus Maternal Grandmother Diabetes mellitus Maternal Grandmother Ovarian Cancer Maternal Grandmother Skin Cancer Immunizations Vaccine Date Status Comments Unknown Payers Payer name Insurance type Covered constitution party ID Authorization(s) [employer] Plan Of [place] - Medicaid MC [id number] Social History Type Description Quantity Date Captured [...] Complete OB Ultrasound > 14 Ordered Weeks (59905) Date Type Problem Goal Intervention Status Start [...]
--- OUTSIDE RECORDS SUMMARY | 2017-03-19 16:32 | External Medical Summary | Continuity of Care Document ---
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 tel: [phone] Thad See Maternal care for Sep-2 Jose M In Womens Ultrasound excess -[address], growth, third 7 Medical PO Box trimester, unspLow Center 1522, lying placenta NOS [place], or w/out 120, [place], hemorrhage, third See, [id number], [email or web address] weeks [place], [place] gestation of tel: , [place]. tel: [phone] Thad See Supervision of Sep-1 Jose M In Womens other high risk 2-201 [place]. [facility] [place], pregnancies, third 7 Medical PO Box trimesterOth Center 1522, related [place], conditions, third 120, [place], [email or web address] weeks See, [id number], gestation of [place], [place] [id number] tel:+ , [place]. tel:[phone] Thad See Supervision of Sep-0 Jose M In Womens other high risk 1-201 [place]. [facility] [place], pregnancies, third 7 Medical PO Box [email or web address] weeks Center 1522, gestation of [place], 120, [place], See, [id number], [place], [place] [id number] tel:+ , [place]. tel: [phone] Thad See Supervision of Aug-0 Jose M In Womens other high risk 3-201 [place]. [facility] [place], pregnancies, 7 Medical PO Box second [email or web address] Center 1522, weeks gestation of [place], 120, [place], See, [id number], [place], [place] [id number] tel:+ , [place]. tel: [phone] Thad See Supervision of Dami-2 Jose M In Womens other high risk 8-201 [place]. [facility] [place], pregnancies, 7 Medical PO Box second [email or web address] Center 1522, weeks gestation of [place], 120, [place], See, [id number], [place], [place] [id number] tel:+ , [place]. tel: [phone] Thad See Supervision of Dami-2 Jose M In Womens Ultrasound other high risk 8-201 [place]. [facility] [place], pregnancies, 7 Medical PO Box second Center 1522, trimesterMaternal [place]ens, care for excess 120, [place], growth, See, [id number], second tri, unsp20 [place], [place] weeks gestation of [id number] tel:+ , [place]. tel: [phone] Thad See Supervision of Dami-1 Jose M In Womens other high risk 5-201 [place]. [facility] [place], pregnancies, 7 Medical PO Box second [email or web address] Center 1522, weeks gestation of [place], 120, [place], See, [id number], [place], [place] [id number] tel: , [place]. tel: [phone] Thad See Supervision of May-1 Jose M In Womens other high risk 8-201 [place]. [facility] [place], pregnancies, 7 Medical PO Box second [email or web address] Center 1522, weeks gestation of [place], 120, [place], See, [id number], [place], [place] [id number] tel:+ , [place]. tel: [phone] Thad See Supervision of Apr-2 Jose M In Womens other high risk 0-201 [place]. [facility] [place], pregnancies, first 7 Medical PO Box trimesterOth Center 1522, related [place], conditions, first 120, [place], trimesterPap Smear See, , Screening, [place], [place] [email or web address] weeks tel: gestation of , [place]. tel: [phone] Thad See Secondary Apr-0 Jose M In Womens amenorrhea 6-201 [place]. [facility] [place], 7 Medical PO Box Center 1522, [place], 120, [place], Esa, [id number], [place], [place] [id number] tel:+ , [place]. tel: [phone] Thad See state, Mar-2 Jose M In Womens incidental 2-201 [place]. [facility] [place], 7 Medical PO Box Center 1522, [place], 120, [place], Esa, [id number], [place], [place] [id number] tel:+ , [place]. tel: [phone] Thad See Encounter for Mar-1 Joe In Womens 5-201 [place]. [facility] [place], screening of 7 700 PO Box mother Medical 15[address], [address] [place] [address] Sue, Paloom SON, 120, [id number], See, [place], tel:[phone] , [place]. tel: [phone] Thad See Candidiasis of [place]-2 [place] In [place]ens vulva and 6-[address] [place]. 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 tel: [phone] Thad See Encounter for Jose M In Womens removal of 2-201 [place]. [facility] [place], intrauterine 6 Medical PO Box contraceptive Center 1522, deviceEncounter [place], for removal of 120, [place], intrauterine See, [id number], contraceptive [place], [place] device [id number] tel: , [place]. tel: [phone] Thad See Fe-2 Jose M In Womens 8-200 [place]. [facility] [place], 8 Medical PO Box Center 1522, [place], 120, [place], See, [id number], [place], [place] [id number] tel: , [place]. tel: [phone] Family History Family Member Diagnosis Age At Onset Paternal Grandmother Diabetes mellitus Paternal Grandfather Lung Disease Maternal Grandfather Diabetes mellitus Paternal Grandfather Diabetes mellitus Maternal Grandmother Diabetes mellitus Maternal Grandmother Ovarian Cancer Maternal Grandmother Skin Cancer Immunizations Vaccine Date Status Comments Unknown Payers Payer name Insurance type Covered alliance party ID Authorization(s) [employer] Plan Of [place] - Medicaid MC [id number] Social History Type Description Quantity Date Captured Alcohol Use Details No Caffeine Use Details Unknown Tobacco Use Status Ex-cigarette smoker Smoking Status Former smoker Vital Signs Date / Height Weight BMI Pulse Blood Temperature Respiratory Body Head BMI Time: Rate Pressure Rate Surface Circumference percentile Area 234.70 42.9 lbs 2 mm[Hg] 4:29 kg/m PM eter (2) Chief Complaint And [...] Complete OB Ultrasound > 14 Ordered Weeks (96226) Future Order: Radiology Order Ultrasound OB Follow-up (55550) Ordered Date Type Problem Goal Intervention Status [...]
[2017-03-19] MEDS ORDERED: ONDANSETRON 4 MG/2 ML INJECTION IVP PRN (16:37)
[2017-03-19] MEDS ORDERED: ROPIVACAINE 1% 10MG/ML INJ 200 MG, SUFentanil 50 MCG in NS 100 ML EPI PRN (16:37)
[2017-03-19] MEDS ORDERED: NALOXONE 0.4 MG/ML INJECTION IVP PRN (16:37)
[2017-03-19] MEDS ORDERED: DiphenhydrAMINE 50 MG/ML INJECTION IVP PRN (16:37)
--- NOTE | 2017-03-19 16:37 | Anesthesia Preoperative Report ---
Anesthesia Epidural/Spinal Rec - Date and Time Date: 03/19/17 Preoperative Diagnosis: Procedure: Labor Epidural Plan: Epidural - Vital Signs Vital Signs: Temperature 98.4 F 03/19/17 15:48 Pulse Rate 87 03/19/17 15:48 Respiratory Rate 20 03/19/17 15:48 Blood Pressure 127/74 03/19/17 15:48 Pulse Oximetry 100 03/19/17 15:48 /Para: G: P: Heart Rate: 150 Height and Weight: 62 inches - Medictaions & Allergies Inpatient Medications: Current Medications Acetaminophen (Tylenol) 500 - 1,000 mg PO Q4H PRN PRN Reason: Pain Al Hydroxide/Mg Hydroxide (Maalox Plus) 30 ml PO Q3H PRN PRN Reason: Indigestion Calcium Carbonate (Tums) 500 - 1,000 mg PO Q2H PRN PRN Reason: Indigestion Carboprost Tromethamine (Hemabate) 250 mcg IM O PRN PRN Reason: .Downtime Lactated Ringer's (Lactated Ringers) 1,000 mls @ 999 mls/hr IV .Q1H1M PRN Last Admin: 03/19/17 15:53 Dose: 999 mls/hr Lidocaine HCl (Xylocaine-Mpf 1% Vial) 0.2 mg ID O PRN PRN Reason: IV Start Methylergonovine Maleate (Methergine) 0.2 mg IM O PRN Misoprostol (Cytotec) 800 mcg DE ONCE PRN Allergies/Adverse Reactions: Allergies Allergy/AdvReac Type Severity Reaction Status Date / Time No Known Allergies Allergy Unknown Verified 09/27/15 02:53 - Home Medications Home Medications: Home Medications Medication Instructions Recorded Confirmed Type Acetaminophen 2 tab PO Q6H #60 tab 09/27/15 History Ibuprofen 4 cap PO Q4H PRN #0 cap 09/27/15 History - Medical History Other History: Reports: Now - Surgical History Anesthesia Reactions: None Hx Family Anesthesia Reaction: No - Social History Second Hand Exposure: No Substance Use Type: does not use Alcohol Intake Frequency: does not drink Hx Chewing Tobacco Use: No - Pertinent Findings Lab Data: CBC and BMP 03/19/17 15:53 EKG Rhythm: Normal Sinus Rhythm - Physical Exam Respiratory Exam: lungs clear Cardiovascular Exam: regular rate and rhythm - Airway Assessment Mallampati Score: II TMD: 3 Fingerbreadths Neck Extension: good Overall Assessment: may be difficult intubation - ASA ASA Score: 2 - Discussion Discussion: Discussed risks/options/alternatives of anesthesia and questions answered. Patient consents. Nursing pain assessment noted. Anesthesia Discussion: spouse Attestation Statement: Prior to the delivery of any anesthetic medication, I examined the patient, developed the plan, obtained the patient's consent and discussed the risk and benefits of the procedure with the patient/guardian.
[2017-03-19 16:52] VITALS: BMI 44.3
[2017-03-19] MEDS ORDERED: D5LR 1,000 ML IV PRN (19:11)
[2017-03-19] MEDS ORDERED: OXYTOCIN DRIP 30 UNIT/500 ML ML IV PRN (19:11)
[2017-03-19] MEDS ORDERED: MORPHINE SULFATE 4mg INJECTION IVP PRN (22:32)
[2017-03-20] MEDS ORDERED: MAG-AL + SIM ORAL LIQUID 30ml PO PRN (00:08)
[2017-03-20] MEDS ORDERED: DiphenhydrAMINE 25 MG CAPSULE PO PRN (00:08)
[2017-03-20] MEDS ORDERED: CALCIUM CARBONATE Chewable 500mg TABLET PO PRN (00:08)
[2017-03-20] MEDS ORDERED: BENZOCAINE 20% SPRAY 0.5 ML MM ONE (00:08)
[2017-03-20] MEDS ORDERED: ACETAMINOPHEN 500 MG TABLET PO PRN (00:08)
[2017-03-20] MEDS ORDERED: HYDROCORTISONE 2.5% CREAM 30gm RECTALLY PRN (00:08)
[2017-03-20] MEDS: HYDROCODONE/APAP 5mg/325mg TABLET PO PRN ×5 (00:10→22:59)
[2017-03-20] MEDS: IBUPROFEN 800 MG TABLET PO PRN ×3 (00:10→22:59)
[2017-03-20] MEDS: OXYTOCIN DRIP 30 UNIT/500 ML ML IV SCH ×3 (01:41→14:58)
[2017-03-20] MEDS ORDERED: BUPIVACAINE 0.25% (2.5mg/ml) PF 30ml INJECTION ONE (07:01)
[2017-03-20] MEDS ORDERED: FentaNYL 100 MCG/2 ML INJECTION ONE ×2 (07:03→08:13)
[2017-03-20] MEDS ORDERED: MIDAZOLAM 2mg/2ml INJECTION ONE (07:04)
[2017-03-20] MEDS ORDERED: LIDOCAINE 2%/EPI 1:200,000 20ml SDV PF ONE (07:04)
[2017-03-20] MEDS: LR 1,000 ML IV SCH ×4 (07:07→14:58)
[2017-03-20] MEDS ORDERED: DiphenhydrAMINE 50 MG/ML INJECTION ONE (07:31)
--- NOTE | 2017-03-20 08:36 | OB/GYN Procedure Note ---
Operative Note Date of Surgery: 03/20/17 Preoperative Diagnosis:desires sterilization Postoperative Diagnosis:same Procedure: modified margarita PPTL Surgeon:Festus Salguero MD Torch Solderer: none EBL:10cc Anesthesia: epidural dosing by que Asif CRNA Complications:none
[2017-03-20] MEDS ORDERED: BUPIVACAINE 0.25% (2.5mg/ml) PF 30ml INJECTION SQ ONE (08:44)
--- NOTE | 2017-03-20 08:51 | Anesthesia Postoperative Note ---
- Date and Time Date: 03/20/17 Time: 08:50 - Status Patient Participated in Evaluation: Patient Participated in Person Vital Signs: Temperature 97.6 F 03/20/17 08:33 Pulse Rate 99 03/20/17 08:45 Respiratory Rate 20 03/20/17 08:45 Blood Pressure 127/73 03/20/17 08:45 Pulse Oximetry 97 03/20/17 08:45 Respiratory Function: Airway Patent, Regular Respirations Cardiovascular Function: Regular Pulse Mental Status: Alert and Oriented Pain Intensity: 0 Hydration: IV Infusing Complications During Recover: None Apparent - Follow-Up Instructions Instructions: Per Surgeon
[2017-03-20] MEDS ORDERED: HYDROMORPHONE 2 MG/ML INJECTION IVP PRN (09:05)
[2017-03-20] MEDS ORDERED: ONDANSETRON 4 MG/2 ML INJECTION IVP PRN (09:05)
[2017-03-20] MEDS: DOCUSATE CALCIUM 240 MG CAPSULE PO SCH (09:56)
--- NOTE | 2017-03-20 13:43 | Operative Note ---
DATE OF SURGERY: 03/20/2017 PREOPERATIVE DIAGNOSIS 31-year-old female, G6-P5, desiring permanent sterilization. POSTOPERATIVE DIAGNOSIS 31-year-old female, G6-P5, desiring permanent sterilization. PROCEDURE: Modified Petra tubal ligation. EBL: 10 cc. SURGEON: Festus Salguero MD ANESTHESIA: Epidural catheter dosing by Fermin Asif CRNA. COMPLICATIONS: None. DESCRIPTION OF OPERATION Prior to starting the procedure the patient again vocalized her desire for permanent sterilization. The risks, complications and alternatives to this procedure were again reviewed and questions were answered to the Patient's satisfaction. A chance of failure is present (estimated at 1%) coupled with an increased risk of ectopics if failure occurs. The patient is aware of this and still desires to proceed. After adequate epidural anesthesia, the patient was prepped and draped in the supine position. The bladder was emptied prior to beginning the procedure. Then 0.25% Marcaine was injected in the inferior aspect of the umbilical region for additional anesthesia. Then a semilunar subumbilical incision was made with a scalpel. This was carried down to the fascia. The fascia was identified and incised transversely with the Chavez scissors. Peritoneum was then identified and grasped with a Norma clamp and entered with a Metzenbaum scissors. Because of her size, an extra small Jet retractor was used to help with visualization. The patient was then placed in slight Trendelenburg position and rolled to the left side. The right fallopian tube was then identified and grasped with a [place] clamp and followed in a serial fashion to its fimbriated end to confirm tube identification. Then in a stairstep fashion it was followed back to the mid isthmic portion of the tube. The mid isthmic portion of the tube was elevated through the incision forming a knuckle of the tube and this knuckle was initially ligated using 2-0 chromic. Then a Norma clamp was passed through the meso of the tube and the proximal and distal aspects of the knuckle of the tube were ligated using 2-0 silk sutures. The knuckle of the tube was then transected and removed and sent to surgical pathology for lumen confirmation. Hemostasis was confirmed. Then 0.25% Marcaine was injected in the ligated end of the knuckle of the tube for additional anesthesia. The tube was then allowed to return to the abdominal wall after the fimbriated end was again visualized to confirm identification. Once the tube was replaced into the abdominal cavity the patient was rolled to the other side and the procedure was repeated in an identical fashion on the left side. Care was taken to identify the fallopian tube prior to and after performing the procedure by visualization of the fimbriated end. Once this was completed on both sides and hemostasis was confirmed on both sides, the abdomen was then closed in layers. This was done first by closing the peritoneum in a pursestring fashion using 2-0 Vicryl. Then using 2-0 Vicryl in a running nonlocking fashion, fascia was closed. The skin was closed in a subcuticular fashion using 4-0 undyed Vicryl. Additional Marcaine was injected around the incision site. The patient tolerated the procedure well and went to the recovery room in stable condition. Pad, sponge and needle counts were correct. AMYD
--- NOTE | 2017-03-20 13:52 | Labor and Delivery Note ---
DATE OF DELIVERY: 03/19/2017 DIAGNOSES 1. 31-year-old female, G6-P4, at 38.3 weeks gestational age. 2. Spontaneous labor. 3. Epidural anesthesia. 4. Artificial rupture of membranes. 5. Spontaneous vaginal delivery. 6. Meconium-stained amniotic fluid. 7. Second-degree perineal laceration - repaired. 8. Female , Apgars, 3860 grams (Noelle). 9. Pitocin augmentation to 10 mU/min. DESCRIPTION This is a patient of mine who came into the office on reporting contractions. Her cervix in the office was 2 cm dilated. Contractions became stronger and closer together later in the afternoon and she went to Labor and Delivery per our instructions. She was 3 cm when she arrived so she was admitted. She underwent an epidural block and then I artificially ruptured her membranes. There was meconium stained amniotic fluid noted at that time. She kind of stalled out so we did Pitocin augmentation to 10 mU/min and that helped get her to complete dilation then she pushed for some time and then a vaginal delivery occurred. Infant was DeLee suction just after delivery. Because of the concern for shoulder dystocia I went straight from delivery of the head to delivery of the body. There ended up being no shoulder dystocia so I DeLee suctioned as soon as the baby was delivered. Cord was allowed to drain for a short period of time and then was doubly clamped and cut. The was taken to the isolette where BRIA Chahal, received the baby. Placenta delivered spontaneously. There was a second-degree perineal laceration that was small and repaired with 3-0 chromic. Maternal blood type is O+, rubella was immune and GBS was negative. The patient desires tubal ligation and that is scheduled for tomorrow. SHAMA
[2017-03-21] MEDS: HYDROCODONE/APAP 5mg/325mg TABLET PO PRN ×2 (05:33→14:01)
[2017-03-21] MEDS: IBUPROFEN 800 MG TABLET PO PRN (08:04)
[2017-03-21] MEDS: DOCUSATE CALCIUM 240 MG CAPSULE PO SCH (08:04)
--- NOTE | 2017-03-21 08:33 | Progress Note ---
OB PP Progress Note Free Text - Date Date: 03/21/17 - Progress Note Progress Note: doing well vss af dc to home today f/u 6 wks q&a-krb
[2017-03-21 08:48] VITALS: O2SAT 98
[2017-03-21 16:14] VITALS: BP 130/87; PULSE 101; RESP 18; TEMP 98.3
== END 2017-03-21 19:44 | disposition home or self-care (01) | DRG 767 ==
LOC: OBOBS 15:25 → MC 15:26
PROVIDERS: ADMIT Obstetrics & Gynecology; ATTEND Obstetrics & Gynecology